=== PATIENT | female | born 1990 | race Caucasian/White ===

== ENCOUNTER 2019-04-07 10:33 | Outpatient (CLI) | payer SELFPAY ==
[2019-04-07 15:41] LABS: TSH (W/Ref FT4) 3.15 uIU/mL (0.36-3.74)
== END 2019-04-07 10:53 ==
DX: F32.9 Major depressive disorder, single episode, unspecified (principal); F41.9 Anxiety disorder, unspecified; G47.00 Insomnia, unspecified; R63.4 Abnormal weight loss
CPT/HCPCS: 36415; 84443

== ENCOUNTER 2019-07-06 16:25 | Outpatient (REF) | payer BC, SELFPAY ==
--- NOTE | 2019-07-06 16:00 | CER_PTH ---
PATIENT: Belen Martinez LOC: [facility] U#:[id number] AGE/SX: 29/F ROOM: RE07/06/[address]: Chino Hilliard MD : 1990 BED: DIS: 07/06/2019 SPEC #: [id number] RECD: 07/06/19 17:59 STATUS: ANA MARIA REBoris #: [id number] JOB: 07/06/19 16:[address]: Chino Hilliard DEPT: Surgical Specimen RECD BY: Karrie Aburto ENTERED: 07/06/19 18:00 SP TYPE: CER ISAIAS DR: Dorina Sutton APRN Tissues: 1 - CERVICAL BIOPSY 2 - CERVICAL BIOPSY 3 - ENDOCERVICAL BX/CURRETTE Procedures: GROSS AND MICRO LEVEL 4 Comments: [id number]
--- NOTE | 2019-07-06 16:00 | PAPFT_PTH ---
PATIENT: Belen Martinez LOC: [facility] U#:[id number] AGE/SX: 29/F ROOM: RE07/06/[address]: Chino Hilliard MD : 1990 BED: DIS: 07/06/2019 SPEC #: [id number] RECD: 07/06/19 18:06 STATUS: ANA MARIA REBoris #: [id number] JOB: 07/06/19 16:[address]: Chino Hilliard DEPT: [facility] Cytology RECD BY: Karrie Aburto ENTERED: 07/06/19 18:06 SP TYPE: PAPFT OTHR DR: Dorina Sutton APRN Tissues: 1 - CX/ENDOCX FOR PAP SMEARS Procedures: PAP THIN PREP/[facility] Screening Comments: [id number]
== END 2019-07-06 16:45 ==
LOC: LBN 16:25
PROVIDERS: Visit Provider Obstetrics & Gynecology
DX: N87.1 Moderate cervical dysplasia (principal); N88.8 Other specified noninflammatory disorders of cervix uteri; R87.613 High grade squamous intraepithelial lesion on cytologic smear of cervix (HGSIL); Z12.4 Encounter for screening for malignant neoplasm of cervix
CPT/HCPCS: 88142; 88305

== ENCOUNTER 2019-07-17 09:42 | Outpatient (CLI) | payer BC, SELFPAY ==
[2019-07-17 12:25] LABS: Abs Immature Grans 0.01 k/cumm (0.0-0.09); Absolute Basophil Count 0.06 k/cumm (0.0-0.2); Absolute Eosinophil Count 0.34 k/cumm (0.0-0.7); Absolute Lymphocyte Count 2.86 k/cumm (1.2-3.4); Absolute Neutrophil Count 3.54 k/cumm (1.2-6.7); Basophils % 0.8; Eosinophils % 4.6; HCT 41.8 % (36.0-46.0); HGB 13.7 g/dL (12.0-15.5); Immature Grans % 0.1 %; Lymphocytes % 38.6; Mean Corp. HGB Concentration 32.8 g/dL (32.0-36.0); Mean Corpuscular Hemoglobin 30.6 pg (27.0-33.0); Mean Corpuscular Volume 93.5 fL (80-95); Mean Platelet Volume 10.4 fL (8.0-11.0); Monocytes % 8.1; Neutrophils % 47.8; Platelet Count 235 x1000/uL (130-400); RBC 4.47 m/cumm (4.00-5.20); RBC Distribution Width 12.7 % (11.7-14.6); White Blood Cell Count 7.41 k/cumm (4.4-10.8)
[2019-07-17 13:14] LABS: ALT 23 U/L (14-59); AST 17 U/L (15-37); Albumin 4.2 g/dL (3.4-5.0); Alkaline Phosphatase 48 U/L (46-116); Anion Gap 11.2 mmol/L (3-11); BUN 10 mg/dL (7-18); Bilirubin, Total 0.6 mg/dL (0.2-1.0); CO2 26.8 mmol/L (21.0-32.0); CREATININE 0.88 mg/dL (0.55-1.02); Calcium 9.1 mg/dL (8.5-10.1); Chloride 106 mmol/L (98-107); Glucose 85 mg/dL (74-106); Sodium 144 mmol/L (136-145); Total Protein 7.1 g/dL (6.4-8.2)
[2019-07-17 13:46] LABS: ESR 6 mm/hr (0-20)
== END 2019-07-17 10:02 ==
DX: R50.9 Fever, unspecified (principal); L63.9 Alopecia areata, unspecified
CPT/HCPCS: 36415; 80053; 85652; 85025

== ENCOUNTER → 2019-07-27 14:05 | Outpatient (REF) | payer BC, SELFPAY ==
--- NOTE | 2019-07-27 13:30 | CER_PTH ---
PATIENT: Belen Martinez LOC: [facility] U#:[id number] AGE/SX: 35/F ROOM: RE07/27/[address]: Chino Hilliard MD : 1990 BED: DIS: SPEC #: [id number] RECD: 07/27/19 17:28 STATUS: ANA MARIA REBoris #: [id number] JOB: 07/27/19 13:[address]: Chino Hilliard DEPT: Surgical Specimen RECD BY: Karrie Aburto ENTERED: 07/27/19 17:29 SP TYPE: CER OTHR DR: Sheridan Gerardo MD Tissues: 1 - CERVICAL LEEP/LOOP 2 - CERVICAL LEEP/LOOP 3 - ENDOCERVICAL BX/CURRETTE Procedures: GROSS AND MICRO LEVEL 4 GROSS AND MICRO LEVEL 5 Comments: [id number]
== END ==
LOC: LBN 14:05
PROVIDERS: PCP Internal Medicine; Visit Provider Obstetrics & Gynecology
DX: Z87.410 Personal history of cervical dysplasia (principal)
CPT/HCPCS: 88305; 88307

== ENCOUNTER 2020-01-27 15:57 | Outpatient (REF) | payer MEDICAID, SELFPAY ==
--- NOTE | 2020-01-27 10:30 | PAPFT_PTH ---
PATIENT: Belen Martinez LOC: [facility] U#:[id number] AGE/SX: 29/F ROOM: RE01/27/[address]: Chino Hilliard MD : 1990 BED: DIS: 01/27/2020 SPEC #: [id number] RECD: 01/27/20 18:15 STATUS: ANA MARIA REQ #: [id number] JOB: 01/27/20 10:[address]: Chino Hilliard DEPT: [facility] Cytology RECD BY: Karrie Aburto ENTERED: 01/27/20 18:16 SP TYPE: PAPFT OT DR: Natty Nicole, PhD RELIABILITY SPECIALIST Tissues: 1 - CX/ENDOCX FOR PAP SMEARS Procedures: PAP THIN PREP/[facility] Screening HPV DNA PROBE Comments: [id number]
== END 2020-01-27 16:17 ==
LOC: LBN 15:57
PROVIDERS: PCP Nurse Practitioner; Visit Provider Obstetrics & Gynecology
DX: Z11.51 Encounter for screening for human papillomavirus (HPV) (principal); Z12.4 Encounter for screening for malignant neoplasm of cervix
CPT/HCPCS: 88142; 87624

== ENCOUNTER 2020-09-13 15:24 | Outpatient (CLI) | payer MEDICAID, SELFPAY ==
--- NOTE | 2020-09-13 15:00 | DI.RAD_ITS ---
EXAM: XR HIP LT COMPLETE AP PELVIS CLINICAL HISTORY: f/u. TECHNIQUE: 2D digital imaging was performed. COMPARISON: No exams were available for comparison FINDINGS: BONES: No acute fracture is present. No bony destructive lesion is seen. JOINTS: No dislocation present. There is prominent coverage of the femoral heads secondary to the nathan tabuli bilaterally. This may represent femoral acetabular impingement. SOFT TISSUE: Normal. IMPRESSION: DATA REPOSITORY: RADIATION DOSE DELIVERED:
== END 2020-09-13 15:25 | disposition home or self-care (01) ==
LOC: DIORS 15:24
PROVIDERS: PCP Nurse Practitioner; Visit Provider Student in an Organized Health Care Education/Training Program
DX: M25.552 Pain in left hip (principal)
CPT/HCPCS: 73502

== ENCOUNTER 2020-11-01 03:02 | Outpatient (CLI) | payer MEDICAID, SELFPAY ==
[2020-11-01 11:39] LABS: Source Nasal/Nares
[2020-11-01 14:30] LABS: COVID-19 PCR Negative (Negative)
== END 2020-11-01 03:03 | disposition home or self-care (01) ==
LOC: LBO 03:02
PROVIDERS: PCP Nurse Practitioner; Visit Provider Student in an Organized Health Care Education/Training Program
DX: Z20.822 Contact with and (suspected) exposure to COVID-19 (principal); Z01.818 Encounter for other preprocedural examination
CPT/HCPCS: 87635

== ENCOUNTER 2020-11-01 03:30 | Outpatient (CLI) | payer MEDICAID, SELFPAY ==
[2020-11-01 12:12] LABS: Calculated LDL 131 mg/dL (<100); Cholesterol 210 mg/dL (<200); HDL Cholesterol 66 mg/dL (40-60); Triglyceride 66 mg/dL (<150)
[2020-11-03 06:26] LABS: Anabasine <2.0 ng/mL (<2.0); Cotinine <5.0 ng/mL (<5.0); Nicotine <5.0 ng/mL (<5.0); Nornicotine <2.0 ng/mL (<2.0)
== END 2020-11-01 03:31 | disposition home or self-care (01) ==
PROVIDERS: PCP Nurse Practitioner; Visit Provider Student in an Organized Health Care Education/Training Program
DX: F17.200 Nicotine dependence, unspecified, uncomplicated (principal); Z13.6 Encounter for screening for cardiovascular disorders; M25.852 Other specified joint disorders, left hip
CPT/HCPCS: 36415; 80061; 80323

== ENCOUNTER 2020-11-04 06:07 | Day surgery (SDC) | payer MEDICAID, SELFPAY ==
[2020-11-04] VITALS (9 sets, daily range): BP systolic 95–131; BP diastolic 51–73; PULSE 64–92; RESP 14–22; TEMP 36.3–36.8; O2SAT 96–100; BMI 20.3
--- NOTE | 2020-11-04 07:00 | W.ANESPRE ---
General Info Date of Service Date Performed: 11/04/20 Height: 5 ft 5 in Weight: 55.4 kg Body Mass Index (BMI): 20.3 Surgical Procedure: Operation Date: 11/04/20 07:50 Proposed Procedures Side Surgeon p HIP Arthroscopy with acetabuloplasty, labral debridement versus repair, and possible femoroplasty Left Sebastián Wood MD Meds Allergies and Home Medications Allergies Allergy/AdvReac Type Severity Reaction Status Date / Time tetrahydrozoline HCl AdvReac Intermediate burning Verified 11/04/20 06:10 [From Visine] Home Medication Medication Instructions Recorded cholecalciferol (vitamin D3) 100 4,000 unit PO DAILY 07/06/19 mcg (4,000 unit) capsule omega-3 fatty acids 1,000 mg 1,000 mg PO DAILY PRN 05/27/20 capsule sertraline 50 mg tablet 50 mg PO DAILY #90 tab 05/27/20 prenat.vits,clayton,kir-lalw-kanvh 1 tab PO DAILY 09/13/20 Current Visit Medications: Current Medications Generic Name Dose Route Start Last Admin Trade Name Freq PRN Reason Stop Dose Admin Ringer's Solution 1,000 mls @ 100 mls/hr 11/04/20 06:00 IV 12/03/20 23:59 INFUSION EREN Cefazolin Sodium/Dextrose 2 gm in 50 mls @ 100 mls/hr 11/04/20 06:00 Ancef Duplex IVPB 12/03/20 23:59 PREOP EREN IV Miscellaneous Supplies 1 each 11/04/20 06:00 Iv Access IV 12/03/20 23:59 DIRECTED EREN Sodium Chloride 0 ml 11/04/20 06:00 Normal Saline Flush 10 Ml Syr IV 12/03/20 23:59 PRN PRN Sodium Chloride 0 ml 11/04/20 06:00 Normal Saline 10 Ml Vial IJ 12/03/20 23:59 DIRECTED PRN Sterile Water 0 ml 11/04/20 06:00 Water,Injection,Sterile 10 Ml Vial IJ 12/03/20 23:59 DIRECTED PRN PFSH Active Problems Active Problems: Problem Status Onset Code Labral tear of left hip joint S73.192A Femoroacetabular impingement of left hip M25.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 HSIL (high grade squamous intraepithelial lesion) on Pap smear of cervix R87.613 RAMONA II (cervical intraepithelial neoplasia II) N87.1 Allergic rhinitis due to allergen 08/06/16 J30.9 Anxiety and depression 09/19/17 F41.9, F32.9 Migraine G43.909 Postnasal drip 05/07/16 R09.82 Smoker 02/13/16 F17.200 Medical History Medical History Fracture of left foot 8th grade Hair loss Personal history of cervical dysplasia (05/23/12) URI (upper respiratory infection) Surgical History Surgical History Arthroscopy, Shoulder (~2007) RIGHT Tobacco Smoking/Tobacco Use Status: Former Tobacco Use Quit Status: has quit before Second hand exposure: Yes Alcohol Alcohol Intake: current Alcohol intake frequency: holidays/special occasions only Alcohol type: beer Substance Use Substance use: Daily Substance use type: marijuana Details: Last use 11/03/20. Vital Signs and Lab Results Vital Signs Most Recent Vital Signs in EMR: Most Recent Vital Signs Temp Pulse Resp BP Pulse Ox 36.6 C 74 17 98/66 L 96 11/04/20 06:16 11/04/20 06:16 11/04/20 06:16 11/04/20 06:16 11/04/20 06:16 Lab Results Blood Type / Crossmatch: No Data to Display Complete Blood Count: White Blood Count 7.41 k/cumm (4.4-10.8) 07/17/19 11:07/17/19 Red Blood Count 4.47 m/cumm (4.00-5.20) 07/17/19 11:07/17/19 Hemoglobin 13.7 g/dL (12.0-15.5) 07/17/19 11:07/17/19 Hematocrit 41.8 % (36.0-46.0) 07/17/19 11:07/17/19 Platelet Count 235 x1000/uL (130-400) 07/17/19 11:07/17/19 Complete Metabolic Panel: Sodium Level 144 mmol/L (136-145) 07/17/19 11:07/17/19 Potassium Level 4.0 mmol/L (3.5-5.1) 07/17/19 11:07/17/19 Chloride Level 106 mmol/L (98-107) 07/17/19 11:30 07/17/19 Carbon Dioxide Level 26.8 mmol/L (21.0-32.0) 07/17/19 11:30 07/17/19 Blood Urea Nitrogen 10 mg/dL (7-18) 07/17/19 11:30 07/17/19 Creatinine 0.88 mg/dL (0.55-1.02) 07/17/19 11:30 07/17/19 Calcium Level 9.1 mg/dL (8.5-10.1) 07/17/19 11:30 07/17/19 Albumin 4.2 g/dL (3.4-5.0) 07/17/19 11:30 07/17/19 Glucose Level 85 mg/dL (74-106) 07/17/19 11:30 07/17/19 Liver Function Panel: Alanine Aminotransferase (ALT/SGPT) 23 U/L (14-59) 07/17/19 11:30 07/17/19 Aspartate Amino Transf (AST/SGOT) 17 U/L (15-37) 07/17/19 11:30 07/17/19 Coagulation Panel: No Data to Display Cardiac Panel: No Data to Display Arterial Blood Gas: No Data to Display Venous Blood Gas: No Data to Display Pancreas Panel: No Data to Display Thyroid Panel: Thyroid Stimulating Hormone (TSH) 3.15 uIU/mL (0.36-3.74) 04/07/19 14:47 04/07/19 Infectious Disease: Coronavirus (COVID-19)(PCR) Negative (Negative) 11/01/20 10:50 11/01/20 Coronavirus 2019 Source Nasal/nares 11/01/20 10:50 11/01/20 Group A Streptococcus Rapid Positive 04/10/17 11:24 04/10/17 Neisseria gonorrhoeae DNA Probe See comments 04/05/15 15:41 04/05/15 Blood Cultures: No Data to Display Toxicology Panel: No Data to Display Panel: Urine HCG, Qualitative Negative 07/27/19 13:07 07/27/19 Anesthesia Assessment and Plan Anesthesia History Personal History: No History of Anesthesia Complications Family History: No Family History of Anesthesia Complications Exercise Tolerance Exercise Tolerance: Metabolic Equivalents>4 Pertinent Negatives Pertinent Negatives: No Symptoms of GERD Cardiac & Pulmonary Exam Cardiac Exam: Normal S1/S2 Heart Sounds Pulmonary Exam: Clear Bilateral Breath Sounds Airway Exam Known Difficult Airway: No Mallampati Class: 1 Mouth Opening: Normal (> 3cm) Thyromental Distance: Greater than 3 cm Neck Range of Motion: Full ROM Neck Circumference: Normal Teeth Condition: Normal Dentition ASA Classification ASA Score: ASA 2 ASA Emergency: No NPO Status NPO Status: NPO Clears >2 hours, Solids >8 hours Status Status: Negative HCG Anesthesia Plan Anesthesia Technique: General Anesthesia Airway Planned: Endotracheal Tube Pain Management: Surgeon and patient request nerve block Monitors Used: Standard Monitors and SedLine
[2020-11-04] MEDS: Lactated Ringers 1,000 ML 100 ML IV (07:16)
[2020-11-04] MEDS: ceFAZolin 2 GM/50 ML BAG IVPB (08:17)
--- NOTE | 2020-11-04 09:30 | W.ANESNERVE ---
Nerve Block Single Injection Procedure Date and Time Date Performed: 11/04/20 Procedure Start: 07:55 Location Where Procedure Performed Procedure Location: Operating Room Procedure Stop: 08:07 Reason Performed: Postoperative Analgesia Requesting Provider: [place] Timeout Performed Timeout Performed: Yes Monitoring Used ECG, Blood Pressure, SpO2 and ETCO2 Sterility Sterility: Hand Hygiene, Surgical Cap, Surgical Mask, Sterile Gloves, Eye Protection and Chlorhexidine Sedation Given During Procedure Sedation Given (Indicate Dose Given): No Sedation given Patient Mental Status Patient Mental Status: Performed under general anesthesia Nerve Block 1st Nerve Block: Laterality: Left Block Type: JASMIN Needle / Catheter Used: 100mm SonoPlex II Local Anesthetic Bolus (Indicate Dose Given): Injected in 3-5ml increments after negative blood aspiration, Bupivacaine 0.5% (15mL) and Exparel (10 mL) Additives (Indicate Dose Given): None Ultrasound: Sterile probe cover and gel used Ultrasound Image Saved?: Yes Nerve Stimulator: Not Used Paresthesia: None Procedure Tolerated: No Complications Procedure Outcome: Successful Performed By: Juanita Barger 2nd Nerve Block: Laterality: Left Block Type: Other (Lateral Femoral Cutaneous) Needle / Catheter Used: 100mm SonoPlex II Local Anesthetic Bolus (Indicate Dose Given): Injected in 3-5ml increments after negative blood aspiration and Bupivacaine 0.5% (5 mL) Additives (Indicate Dose Given): None Ultrasound: Sterile probe cover and gel used Ultrasound Image Saved?: Yes Nerve Stimulator: Not Used Paresthesia: None Procedure Tolerated: No Complications Procedure Outcome: Successful Performed By: Juanita Barger
--- NOTE | 2020-11-04 11:25 | DI.RAD_ITS ---
Exam(s) XR HIP LT IN OR EXAM: XR HIP LT IN OR CLINICAL HISTORY: hip pain, left hip arthroscopy TECHNIQUE: 2D and realtime digital imaging was performed. CONTRAST MATERIAL: Refer to procedure report. FINDINGS: Fluoroscopy was provided for Dr. Wood in the OR. Please refer to the procedure report for complete details. Ka,r=11.23 mGy IMPRESSION: RADIATION DOSE DELIVERED:
--- NOTE | 2020-11-04 11:33 | W.PM.OP ---
Date of service: 11/04/20 Time of Service: 16:18 Operative Note Operative Note DATE OF PROCEDURE: 11/04/20 PRE-OP DIAGNOSIS: Left hip 1. Femoracetabular impingement 2. Labral tear POST-OP DIAGNOSIS: same PROCEDURE: Left hip 1. Arthroscopic acetabuloplasty, CPT 63452 2. Arthroscopic labral repair, CPT# 69307 3. Arthroscopic femoroplasty, CPT# 13902 SURGEON: Sebastián Wood FIRE ALARM DISPATCHER: Radha Rivera ANESTHESIA TYPE: Local By Surgeon, General LMA/ETT and Primary Nerve Block (JASMIN) Refer to Anesthesia Record ESTIMATED BLOOD LOSS: 5 PATHOLOGY: none sent TOURNIQUET TIME: 120 COMPLICATIONS: None Patient was transported to: PACU Patient's condition: stable Implants: 1.8 mm knotless FiberTak x 1 Indications: Please see complete medical record for details. Findings: Limited flexion and internal rotation due to hip impingement. 0 degrees internal rotation at 90 degrees of flexion. Obligatory external rotation in flexion past 115 degrees. Significant lateral and anterior hip over-coverage type pincer lesion. Cartilage thinning and labral fraying from the anterior to superior labrum. Worst about the anterior superior chondral labral junction. Just distal to the anterior superior lesion, femoral neck cartilage thinning and small bony protuberance type cam lesion. Otherwise intact acetabulum and femoral head articular cartilage. Procedure Description: In the operating room, general and regional anesthesia were induced. The patient was positioned supine on the [place] table. All bony prominences were well-padded. Preoperative antibiotics were administered. The correct patient, procedure, and side of the procedure were all verified prior to incision. Initially, appropriate hip joint distraction was confirmed under sterile technique releasing suction seal with the hip in slight abduction by carefully placing an 18-gauge spinal needle into the hip joint and performing an air arthrogram. The needle was removed, provisional traction released, and the hip prepped and draped in the usual sterile fashion. Fluoroscopically, an anterolateral portal was established with hip under about 1 cm distraction. Traction start time as noted. Through the spinal needle, a nitinol wire was inserted and the needle removed. An 11 blade was used to create a portal sized incision about the Nitinol wire. A small 4 mm dilator was passed atraumatically over the nitinol wire through the capsule into the hip joint. The nitinol wire was removed. A 6 mm dilator was then passed over the smaller one into the hip joint and the initial dilator removed. Although the joint was appropriately distracted, given the significant size of the pincer lesion the larger dilator was in contact with the femoral head and acetabular rim on either side. The blunt end of a switching stick was then passed into the hip joint and the last dilator removed. The camera sleeve was then inserted over the switching stick, as carefully as possible maintain the sharp edge away from the femoral head given the narrow window, the switch to removed, and the arthroscope attached to the camera sleeve. An initial dry arthroscopy of the hip joint confirmed appropriate viewing portal location about the equator laterally. Using a combination of fluoroscopic guidance and arthroscopic triangulation a modified mid anterior portal was established in a similar fashion with a spinal needle and sequential dilators. Care was taken to ensure the portal was in an appropriate position and outside the labrum. A banana blade was inserted anteriorly over half pipe. The capsule was released distal to the labrum working towards the anterolateral portal. The camera was then switched to the anterior portal, the anterolateral portal location was confirmed to be appropriate, although still in a very tight space between the acetabulum rim and femoral head and the banana blade brought in the anterolateral portal and the interportal capsulotomy completed. The camera was then switched back to the anterolateral portal. A complete diagnostic arthroscopy of the hip was performed with relevant findings noted above. Attention was then turned to the pincer lesion. In preparation for the acetabuloplasty the capsule was retracted and soft tissue cleared over the acetabular rim working from anterior to superior and completed switching viewing and working portals using a combination of hand and power instruments as well as the radiofrequency ablator. Fluoroscopy was used to confirm appropriate anterior and superior margins of resection. The banana blade was then used to carefully dissect the labrum off the bony acetabular margin while preserving the central cartilage attachment working in a similar fashion from anterior to superior and switching portals to complete the partial labral detachment. The round bur was then brought in the anterior portal and acetabular bone resected carefully contoured away from the labrum with plan resection about 5 mm at the site of the largest part of the lesion anterosuperiorly and contouring into the anterior and superior acetabular rim resections. Fluoroscopy was used to confirm appropriate landmarks and bony resection. The backside of the labrum was abraded to a stable margin. The labrum was probed and found to be unstable at the anterior superior junction while reasonably stable anterior and superiorly given preserved chondral labral junction. The curved anchor guide was brought in the anterior portal tapped into place on the prepared acetabular rim at the anterior superior margin for labral re? fixation while aiming more superiorly to prevent joint penetration. The drill was used the appropriate depth and repeated to clean out bony debris followed by anchor insertion by hand and then completed by claudia. The fiber tack anchor was probably set by pulling all suture ends and then tested with excellent fixation. The rebolledo stitch suture passer was then used to pass the looped end of the fiber loop between the labrum and acetabulum and then retrieve the loop centrally bringing it around the labrum. The repair stitch was then brought around the labrum using the fiber loop as a shuttle and carefully tension appropriately completing the inversion stitch repair. The labral repair was probed found to be stable and also stable more anteriorly and superiorly. As the traction time was nearing 2 hours and the patient's heel was slipping from the boot, the decision was made to omit any additional labral fixation. Traction was gently released under direct visualization with the arthroscope withdrawn from the joint and a blunt ended switching stick anteriorly both directed at the femoral neck. The hip was brought through significant internal, external, and flexion range of motion and fluoroscopic images were obtained helping to localize the CAM lesion. There was a small but obvious area of femoral neck cartilage delamination and bony protuberance distal to the zone of most significant anterior superior pincer lesion and labral injury. Soft tissues were cleared from the femoral neck using the mechanical shaver and radiofrequency probe taking care only to extend distally in the planned working area. The round bur was then used to smooth and contour the femoral neck. Margins again were localized using fluoroscopic guidance and adequate resection confirmed with deep hip flexion and internal and external rotation with no impingement. The patient's heel was resecured in the boot. At this point, traction had been down for 30 minutes and was reestablished briefly to probe the remaining labrum, which was found to be stable, had good suction seal through the previous range of motion impingement testing, and decision was made to omit any additional labral suture anchors. The mechanical shaver was then inserted into the joint and used to remove any remaining bone and cartilage debris. The traction was let back down with the instruments withdrawn from the joint. The interportal portal capsulotomy had well reasonably opposed tissue ends, there was no hip instability, and was not formally closed. The hip was drained of arthroscopic fluid. 20 cc of 0.25% bupivacaine containing epinephrine was infiltrated about the planned portal sites. 3-0 Monocryl was used to close each incision in a buried portal fashion. Mastisol, Steri-Strips, Xeroform, 4 x 4 gauze, and Tegaderms were applied over each incision. The patient awoke from anesthesia without complication and was transferred to the recovery room in a stable condition. Thigh and abdominal compartments remained soft. Distal pulses and neurovascular exam were intact in recovery.
[2020-11-04] MEDS: EPINEPHrine 30 MG/30 ML VIAL (11:57)
[2020-11-04] MEDS: fentaNYL 100 MCG/2 ML VIAL IVP (12:35)
--- NOTE | 2020-11-04 14:19 | W.ANESPOSTOP ---
Postoperative Evaluation Date, Time and Location Date Performed: 11/04/20 Time Performed: 14:22 Patient Location: Day Surgery Unit Vital Signs Most Recent Imported Vital Signs: Most Recent Vital Signs Temp Pulse Resp BP Pulse Ox 36.8 C 69 18 95/69 L 100 11/04/20 13:45 11/04/20 13:45 11/04/20 13:45 11/04/20 13:45 11/04/20 13:45 Pain Score Most Recent Pain Score: Most Recent Pain Score Pain Level 4 11/04/20 13:45 Assessment Mental Status: Awake (Alert & Oriented to Patient Baseline) Airway and Respiratory Function: Patent airway with normal (patient baseline) respiratory exam Cardiovascular Function: Hemodynamically Stable Hydration Status: Adequately Hydrated Nausea & Vomiting: No Nausea or Vomiting Pain: Pt. Denies Any Pain Peripheral Nerve Block: Regional nerve block not resolved at time of post operative discharge (as is appropriate)
--- NOTE | 2020-11-04 14:35 | PDOC.DSDIS_ITS ---
Discharge Plan Disposition Patient Disposition: HOME Condition: Stable Discharge Details Reason For Visit: Left hip arthroscopy Attending Provider: Sebastián Wood Primary Care Provider: Natty Nicole Home Meds and New Rx's Prescriptions: New aspirin 81 mg tablet,delayed release (DR/EC) 81 mg PO DAILY 30 Days Qty: 30 RF: 0 naproxen 250 mg tablet 250 - 500 mg PO BID PRN (Reason: Moderate pain or swelling) Qty: 60 RF: 0 oxycodone 5 mg tablet 5 - 10 mg PO Q4H PRN (Reason: moderate to severe pain) Qty: 22 RF: 0 Continued sertraline 50 mg tablet 50 mg PO DAILY Qty: 90 RF: 4 prenat.vits,clayton,qag-qffl-prnuv Tablet 1 tab PO DAILY RF: 0 cholecalciferol (vitamin D3) 4,000 unit capsule 4,000 unit PO DAILY RF: 0 omega-3 fatty acids [Fish Oil Concentrate] 1,000 mg capsule 1,000 mg PO DAILY PRNRF: 0 Discharge Instructions Additional Instructions: Surgery: Left hip arthroscopy with acetabuloplasty, labral repair, and femoroplasty Activity: Protected weight bearing (less than 50%) with crutches for 4 weeks. Avoid deep hip flexion or hip extension for 6 weeks. No cutting, pivoting, or sports for 3-4 months. A physical therapy prescription will be sent electronically to start in about 1 month. Prescriptions: Aspirin 81 mg take 1 daily to prevent a blood clot for 30 days Naproxen 250 mg take 1-2 every 12 hours with a meal as needed for moderate pain Oxycodone 5 mg take 1-2 every 4-6 hours as needed for severe pain You may use ohqk-ipt-wijamyj Tylenol (acetaminophen) as needed for mild pain. These pain medications may be taken all at once or in different combinations as needed. Also, recommend Colace (docusate) as a stool softener as surgery and pain medicine cause constipation. Dressings: Leave dressing in place for 2-3 days. May then remove and leave open to air or cover incisions with Band-Aids. May shower after 5 days. Follow-up: 10-[address] Wood Let us know right away if you develop any redness, drainage, fevers, chest pain, or trouble breathing. Do not drink alcohol or drive for at least 24 hours after anesthesia. Please call the office during business hours with any questions or concerns. Yo u can also text or call Dr. Wood at [phone]. Stand Alone Forms: Anes.Nerve Block Instructions, Crutch Training Instructions Referrals: Sebastián Wood MD [ [facility] STAFF PHYSICIAN] - Discharge Orders Discharge Orders: Discharge Order (Routine); Ordered 11/04/20 Ordered By: Sebastián Wood DS: Diagnosis Discharge Diagnosis (1) Labral tear of left hip joint: Status: Acute (2) Femoroacetabular impingement of left hip: Status: Acute
== END 2020-11-04 14:55 | disposition home or self-care (01) ==
PROVIDERS: PCP Nurse Practitioner; Visit Provider Student in an Organized Health Care Education/Training Program
PROC: (CPT 29860; principal; 2020-11-04 07:30)
DX: M25.852 Other specified joint disorders, left hip (principal); M24.152 Other articular cartilage disorders, left hip
CPT/HCPCS: 29916; 29915; 29914; 76942; 73501; J0690; J1100; J2001; J2250; J2405; J3010

== ENCOUNTER 2021-06-07 11:06 | Outpatient (REF) | payer MEDICAID, SELFPAY ==
--- NOTE | 2021-06-07 10:30 | PAPFT_PTH ---
PATIENT: Belen Martinez LOC: [facility] U#:[id number] AGE/SX: 31/F ROOM: RE06/07/[address]: Yasmeen Holliday NP : 1990 BED: DIS: 06/07/2021 SPEC #: [id number] RECD: 06/07/21 12:55 STATUS: ANA MARIA REBoris #: [id number] JOB: 06/07/21 10:[address]: Yasmeen Holliday NP DEPT: [facility] Cytology RECD BY: Karrie Aburto ENTERED: 06/07/21 12:55 SP TYPE: PAPFT OTHR DR: Natty Nicole, PhD EDITOR INDEX Tissues: 1 - CX/ENDOCX FOR PAP SMEARS Procedures: PAP THIN PREP/[facility] Screening HPV DNA PROBE Comments: [id number]
== END 2021-06-07 11:07 | disposition home or self-care (01) ==
LOC: LBN 11:06
PROVIDERS: PCP Nurse Practitioner; Visit Provider Nurse Practitioner Women's Health
DX: Z12.4 Encounter for screening for malignant neoplasm of cervix (principal); Z11.51 Encounter for screening for human papillomavirus (HPV)
CPT/HCPCS: 88142; 87624

== ENCOUNTER 2021-06-20 13:34 | Outpatient (CLI) | payer MEDICAID, SELFPAY ==
--- NOTE | 2021-06-20 13:15 | DI.RAD_ITS ---
Exam(s) XR HIP RT COMPLETE AP PELVIS EXAM: XR HIP RT COMPLETE AP PELVIS CLINICAL HISTORY: Right hip pain. TECHNIQUE: 2D digital imaging was performed of the right hip. Three images were obtained. AP pelvis and lateral right hip views were obtained. COMPARISON: No exams were available for comparison FINDINGS: BONES: No acute fracture is present. No bony destructive lesion is seen. There is prominence of the a cetabulum with covering of the femoral head bilaterally, right greater than left. Findings are suspi cious for femoral acetabular impingement. JOINTS: No dislocation present. The sacroiliac joints and symphysis pubis are unremarkable. SOFT TISSUE: Normal. IMPRESSION: Findings suggestive of femoral acetabular impingement, right greater than left. DATA REPOSITORY: RADIATION DOSE DELIVERED:
== END 2021-06-20 13:35 | disposition home or self-care (01) ==
LOC: DIORS 13:34
PROVIDERS: PCP Nurse Practitioner; Referring Provider Nurse Practitioner; Visit Provider Student in an Organized Health Care Education/Training Program
DX: M25.551 Pain in right hip (principal); M25.851 Other specified joint disorders, right hip
CPT/HCPCS: 73502

== ENCOUNTER 2021-08-29 03:18 | Outpatient (CLI) | payer MEDICAID, SELFPAY ==
[2021-08-29 15:49] LABS: Source Nasal/Nares
[2021-08-29 17:27] LABS: COVID-19 PCR Negative (Negative)
== END 2021-08-29 03:19 | disposition home or self-care (01) ==
LOC: LBO 03:18
PROVIDERS: PCP Nurse Practitioner; Visit Provider Student in an Organized Health Care Education/Training Program
DX: Z20.822 Contact with and (suspected) exposure to COVID-19 (principal); Z01.818 Encounter for other preprocedural examination
CPT/HCPCS: 87635

== ENCOUNTER 2021-08-31 06:07 | Day surgery (SDC) | payer MEDICAID, SELFPAY ==
[2021-08-31] VITALS (7 sets, daily range): BP systolic 92–123; BP diastolic 45–79; PULSE 65–79; RESP 15–21; TEMP 36.5–37.1; O2SAT 97–100; BMI 21.8
[2021-08-31] MEDS: Lactated Ringers 1,000 ML 100 ML IV (06:45)
--- NOTE | 2021-08-31 06:57 | W.ANESPRE ---
General Info Date of Service Date Performed: 08/31/21 Height: 5 ft 3 in Weight: 55.9 kg Body Mass Index (BMI): 21.8 Surgical Procedure: Operation Date: 08/31/21 07:50 Proposed Procedure Side Surgeon p Hip Arthroscopy w/Acetabuloplasty, Labral Repair and Femoroplasty Right Sebastián Aparicio MD Meds Allergies and Home Medications Allergies Allergy/AdvReac Type Severity Reaction Status Date / Time tetrahydrozoline HCl AdvReac Intermediate burning Verified 08/31/21 06:28 [From Visine] Home Medication Medication Instructions Recorded cholecalciferol (vitamin D3) 100 4,000 unit PO DAILY 07/06/19 mcg (4,000 unit) capsule omega-3 fatty acids 1,000 mg 1,000 mg PO DAILY PRN 05/27/20 capsule (Fish Oil Concentrate) prenat.vits,clayton,haq-qkyq-anawe 1 tab PO DAILY 09/13/20 sertraline 50 mg tablet 50 mg PO DAILY #90 tab 06/29/21 Current Visit Medications: Current Medications Generic Name Dose Route Start Last Admin Trade Name Freq PRN Reason Stop Dose Admin Ringer's Solution 1,000 mls @ 100 mls/hr 08/31/21 06:00 08/31/21 06:45 IV 09/29/21 23:59 100 mls/hr INFUSION EREN Administration Cefazolin Sodium/Dextrose 2 gm in 50 mls @ 100 mls/hr 08/31/21 06:00 Ancef Duplex IVPB 08/31/21 16:00 PREOP EREN IV Miscellaneous Supplies 1 each 08/31/21 06:00 Iv Access IV 09/29/21 23:59 DIRECTED EREN Sodium Chloride 0 ml 08/31/21 06:00 Normal Saline Flush 10 Ml Syr IV 09/29/21 23:59 PRN PRN Sodium Chloride 0 ml 08/31/21 06:00 Normal Saline 10 Ml Vial IJ 09/29/21 23:59 DIRECTED PRN Sterile Water 0 ml 08/31/21 06:00 Water,Injection,Sterile 10 Ml Vial IJ 09/29/21 23:59 DIRECTED PRN PFSH Active Problems Active Problems: Problem Status Onset Code Smoker 02/13/16 F17.200 Postnasal drip 05/07/16 R09.82 Anxiety and depression 09/19/17 F41.9, F32.9 Labral tear of right hip joint S73.191A Femoroacetabular impingement of right hip M25.851 Medical History Medical History Allergic rhinitis due to allergen (08/06/16) Fracture of left foot 8th grade Hair loss taking vitamin D, declined steroid Personal history of cervical dysplasia (05/23/12) Surgical History Surgical History Arthroscopy, Shoulder (~2007) RIGHT H/O LEEP S/P hip arthroscopy LEFT HIP DONE BY DR. APARICIO Tobacco Smoking/Tobacco Use Status: Former Tobacco Use Second hand exposure: Yes Alcohol Alcohol Intake: current Alcohol intake frequency: a few times a month Alcohol type: beer Substance Use Substance use: Daily Substance use type: marijuana Details: last used 08/30/21 Prental History History 0 Para Hx # Term Pregnancies Multiple births Hx # Pregnancies Ectopic pregnancies AB induced Hx Number of Living Children AB spontaneous Vital Signs and Lab Results Vital Signs Most Recent Vital Signs in EMR: Most Recent Vital Signs Temp Pulse Resp BP Pulse Ox 37.1 C 73 17 108/79 97 08/31/21 06:20 08/31/21 06:20 08/31/21 06:20 08/31/21 06:20 08/31/21 06:20 Lab Results Blood Type / Crossmatch: No Data to Display Complete Blood Count: No Data to Display Complete Metabolic Panel: No Data to Display Liver Function Panel: No Data to Display Coagulation Panel: No Data to Display Cardiac Panel: No Data to Display Arterial Blood Gas: No Data to Display Venous Blood Gas: No Data to Display Pancreas Panel: No Data to Display Thyroid Panel: No Data to Display Infectious Disease: Coronavirus (COVID-19)(PCR) Negative (Negative) 08/29/21 09:59 08/29/21 Coronavirus 2019 Source Nasal/Nares 08/29/21 09:59 08/29/21 Blood Cultures: No Data to Display Toxicology Panel: No Data to Display Panel: No Data to Display Anesthesia Assessment and Plan Anesthesia History Personal History: No History of Anesthesia Complications Family History: No Family History of Anesthesia Complications Exercise Tolerance Exercise Tolerance: Metabolic Equivalents>4 Pertinent Negatives Pertinent Negatives: No Symptoms of GERD, No Major Cardiovascular Symptoms or Complaints, No Major Pulmonary Symptoms or Complaints and No History of CVA/TIA Cardiac & Pulmonary Exam Cardiac Exam: Normal S1/S2 Heart Sounds Pulmonary Exam: Clear Bilateral Breath Sounds Implantable Cardiac Device Does patient have a Pacemaker or an ICD?: No Airway Exam Known Difficult Airway: No Mallampati Class: 1 Mouth Opening: Normal (> 3cm) Thyromental Distance: Greater than 3 cm Neck Range of Motion: Full ROM Neck Circumference: Normal Teeth Condition: Normal Dentition ASA Classification ASA Score: ASA 1 Emergency Case?: No NPO Status NPO Status: NPO Clears >2 hours, Solids >8 hours Status Status: Negative HCG Anesthesia Plan Resuscitation Status: Full Code Anesthesia Technique: General Anesthesia Airway Planned: Endotracheal Tube Monitors Used: Standard Monitors
--- NOTE | 2021-08-31 07:30 | W.PM.OP ---
Date of service: 08/31/21 Time of Service: 08:00 Operative Note Operative Note DATE OF PROCEDURE: 08/31/21 PRE-OP DIAGNOSIS: Right hip 1. Labral tear 2. Femoracetabular impingement POST-OP DIAGNOSIS: same PROCEDURE: Right hip 1. Arthroscopic labral repair, CPT# 97354 2. Arthroscopic femoroplasty, CPT# 53384 3. Arthroscopic acetabuloplasty, CPT 03392 SURGEON: Sebastián Wood [employer] OPERATOR: Chantal Levin ANESTHESIA TYPE: Local By Surgeon, General LMA/ETT and Primary Nerve Block (JASMIN) Refer to Anesthesia Record ESTIMATED BLOOD LOSS: 5 COMPLICATIONS: None Patient was transported to: PACU Patient's condition: stable Implants: 1.8 mm knotless FiberTak x 1 Indications: Please see complete medical record for details. Findings: Limited flexion and internal rotation due to hip impingement.? 5 degrees internal rotation at 90 degrees of flexion.? Obligatory external rotation in flexion past 125 degrees. Small anterior superior chondral labral junction tear. Small femoral head neck offset prominence. Preserved articular cartilage. Less severe lesion and much less labral and cartilage wear than contralateral side. Procedure Description: In the operating room, general and regional anesthesia were induced.? The patient was positioned supine on the [place] table.? All bony prominences were well-padded.? Preoperative antibiotics were administered.? The correct patient, procedure, and side of the procedure were all verified prior to incision. Initially, appropriate hip joint distraction was confirmed under sterile technique releasing suction seal with the hip in slight abduction by carefully placing an 18-gauge spinal needle into the hip joint and performing an air arthrogram.? The needle was removed, provisional traction released, and the hip prepped and draped in the usual sterile fashion. Fluoroscopically, an anterolateral portal was established with hip under about 1 cm distraction.? Traction start time as noted.? Through the spinal needle, a nitinol wire was inserted and the needle removed.? An 11 blade was used to create a portal sized incision about the Nitinol wire.? A small 4 mm dilator was passed atraumatically over the nitinol wire through the capsule into the hip joint.? The nitinol wire was removed.? A 6 mm dilator was then passed over the smaller one into the hip joint and the initial dilator removed.? The blunt end of a switching stick was then passed into the hip joint and the last dilator removed.? The camera sleeve was then inserted over the switching stick, the switch to removed, and the arthroscope attached to the camera sleeve.? An initial dry arthroscopy of the hip joint confirmed appropriate viewing portal location about the equator laterally.? Using a combination of fluoroscopic guidance and arthroscopic triangulation a modified mid anterior portal was established in a similar fashion with a spinal needle and sequential dilators.? Care was taken to ensure the portal was in an appropriate position and outside the labrum. ? A banana blade was inserted anteriorly over half pipe.? The capsule was released distal to the labrum working towards the anterolateral portal.? The camera was then switched to the anterior portal, the anterolateral portal location was confirmed to be appropriate. The banana blade brought in the anterolateral portal and the interportal capsulotomy completed.? The camera was then switched back to the anterolateral portal. A complete diagnostic arthroscopy of the hip was performed with relevant findings noted above. Attention was then turned to the pincer lesion.? In preparation for the acetabuloplasty the capsule was retracted and soft tissue cleared over the acetabular rim working from anterior to superior and completed switching viewing and working portals using a combination of hand and power instruments as well as the radiofrequency ablator.? Fluoroscopy was used to confirm appropriate anterior and anterior superior margin of the resection. It was difficult to fully reach the most superior margin of the resection, which was far lateral from the labral zone of injury. The banana blade was then used to carefully dissect the labrum off the bony acetabular margin while preserving the central cartilage attachment working in a similar fashion from anterior to superior and switching portals to complete the partial labral detachment.? The round bur was then brought in the anterior portal and acetabular bone resected carefully contoured away from the labrum with plan resection about 3-4 mm at the site of the largest part of the lesion anterosuperiorly and contouring into the anterior and to a lesser extent superior acetabular rim resections.? Fluoroscopy was used to confirm appropriate landmarks and bony resection.? The backside of the labrum was abraded to a stable margin.? The moderately diminutive labrum was probed and found to be unstable at the anterior superior junction while reasonably stable anterior and superiorly given preserved chondral labral junction.? The curved anchor guide was brought in the anterior portal tapped into place on the prepared acetabular rim at the anterior superior margin for labral re? fixation while aiming more superiorly to prevent joint penetration.? The drill was used the appropriate depth and repeated to clean out bony debris followed by anchor insertion by hand and then completed by mallfaizan.? The fiber tack anchor was probably set by pulling all suture ends and then tested with excellent fixation.? The rebolledo stitch suture passer was then used to pass the looped end of the fiber loop between the labrum and acetabulum and then retrieve the loop centrally bringing it around the labrum.? The repair stitch was shuttled through the anchor, but there was knotting of the sutures and the mechanism which could not be undone so the sutures and anchors were removed and an additional fiber tack was placed slightly more superiorly. The drill in this position encountered quite firm bone and even after passing the drill in out in and out again the fiber tack anchor could not deploy in this position. Instead, the original location was selected the drill carefully positioned with the insert over the initial drill hole and the wire passed largely by hand into the same path while the drill was maintained in position and anchor was placed into this position through the drill guide and appropriately deployed with good fixation strength. The looped end of the shuttle suture was then passed using a rebolledo stitch through the chondral labral junction into the joint and then withdrawn out the other side of the labrum. The repair stitch was then brought around the labrum using the fiber loop as a shuttle and carefully tension appropriately completing the inversion stitch repair.? The labral repair was inspected and found to be stable and also reasonably stable more anteriorly and superiorly.? Additional fixation was omitted given the somewhat diminutive labrum and reasonable labral stability present. Traction was gently released under direct visualization at around 90 minutes with the arthroscope withdrawn from the joint and a blunt ended switching stick anteriorly both directed at the femoral neck.? The hip was brought through significant internal, external, and flexion range of motion and fluoroscopic images were obtained helping to localize the CAM lesion.? There was a small area of bony protuberance distal to the zone of most significant anterior superior labral injury.? Soft tissues were cleared from the femoral neck using the mechanical shaver and radiofrequency probe taking care only to extend distally in the planned working area.? The round bur was then used to smooth and contour the femoral neck.? Margins again were localized using fluoroscopic guidance and adequate resection confirmed with deep hip flexion and internal and external rotation with no impingement. The interportal portal capsulotomy had well reasonably opposed tissue ends, there was no hip instability, and was not formally closed.? The hip was drained of arthroscopic fluid.? 3-0 Monocryl was used to close each incision in a buried portal fashion.? Mastisol, Steri-Strips, Xeroform, 4 x 4 gauze, and Tegaderms were applied over each incision. The patient awoke from anesthesia without complication and was transferred to the recovery room in a stable condition.? Thigh and abdominal compartments remained soft.? Distal pulses and neurovascular exam were intact in recovery.
--- NOTE | 2021-08-31 07:48 | W.ANESNERVE ---
Nerve Block Single Injection Procedure Date and Time Date Performed: 08/31/21 Procedure Start: 07:39 Location Where Procedure Performed Procedure Location: Operating Room Procedure Stop: 07:44 Reason Performed: Postoperative Analgesia Requesting Provider: Sebastián Wood Timeout Performed Timeout Performed: Yes Monitoring Used ECG, Blood Pressure and SpO2 Sterility Sterility: Hand Hygiene, Surgical Cap, Surgical Mask, Sterile Gloves and Chlorhexidine Sedation Given During Procedure Sedation Given (Indicate Dose Given): No Sedation given Patient Mental Status Patient Mental Status: Performed under general anesthesia Nerve Block 1st Nerve Block: Laterality: Right Block Type: JASMIN Needle / Catheter Used: 100mm SonoPlex II Local Anesthetic Bolus (Indicate Dose Given): Injected in 3-5ml increments after negative blood aspiration, Bupivacaine 0.5% Dose:: 10 ml and Exparel Dose:: 10 ml Additives (Indicate Dose Given): Normal Saline (hydrodissection) Ultrasound: Sterile probe cover and gel used Ultrasound Image Saved?: Yes Nerve Stimulator: Not Used Paresthesia: None Procedure Tolerated: No Complications and Patient tolerated well Procedure Outcome: Successful Performed By: Killian Clifford
[2021-08-31] MEDS: ceFAZolin 2 GM/50 ML BAG IVPB (07:50)
[2021-08-31] MEDS: EPINEPHrine 30 MG/30 ML VIAL (09:28)
--- NOTE | 2021-08-31 10:10 | DI.RAD_ITS ---
Exam(s) XR HIP RT IN OR EXAM: XR HIP RT IN OR CLINICAL HISTORY: Femoroacetabular impingement of right hip:. TECHNIQUE: 2D digital imaging was performed. COMPARISON: FINDINGS: Fluoroscopy was provided during right hip orthopedic procedure. See procedure report for details IMPRESSION: Total cumulative dose = 6.4680 mGy DATA REPOSITORY: RADIATION DOSE DELIVERED:
--- NOTE | 2021-08-31 10:19 | PDOC.DSDIS_ITS ---
Discharge Plan Disposition Patient Disposition: HOME Condition: Stable Discharge Details Reason For Visit: Right hip surgery Attending Provider: Sebastián Wood Primary Care Provider: Natty Nicole Home Meds and New Rx's Prescriptions: New aspirin 81 mg tablet,delayed release (DR/EC) 81 mg PO DAILY 14 Days Qty: 14 0RF naproxen 250 mg tablet 250 - 500 mg PO BID PRNQty: 40 0RF Rx Instructions: take with a meal oxycodone 5 mg tablet 5 - 10 mg PO Q4H MDD 30 mg PRN (Reason: moderate to severe pain) Qty: 18 0RF Continued prenat.vits,clayton,nzq-hbla-ipeyq Tablet 1 tab PO DAILY 0RF cholecalciferol (vitamin D3) 4,000 unit capsule 4,000 unit PO DAILY 0RF omega-3 fatty acids [Fish Oil Concentrate] 1,000 mg capsule 1,000 mg PO DAILY PRN0RF sertraline 50 mg tablet 50 mg PO DAILY Qty: 90 4RF Discharge Instructions Additional Instructions: Surgery: Right hip arthroscopy with acetabuloplasty, labral repair, and femoroplasty Activity: Protected weight bearing (less than 50%) with crutches for 4 weeks.? Avoid deep hip flexion or hip extension for 6 weeks.? No cutting, pivoting, or sports for 3-4 months.? A physical therapy prescription will be sent electronically to start in about 1 month. Prescriptions: Aspirin 81 mg take 1 daily to prevent a blood clot for 14 days Naproxen 250 mg take 1-2 every 12 hours with a meal as needed for moderate pain Oxycodone 5 mg take 1-2 every 4-6 hours as needed for severe pain You may use krjx-mgm-yausdua Tylenol (acetaminophen) as needed for mild pain. These pain medications may be taken all at once or in different combinations as needed. Also, recommend Colace (docusate) as a stool softener as surgery and pain medicine cause constipation. Dressings: Leave dressing in place for 2-3 days.? May then remove and leave open to air or cover incisions with Band-Aids.? May shower after 5 days. Follow-up: 10-[address] Wood Referrals: Sebastián Wood MD [ [facility] STAFF PHYSICIAN] - Discharge Orders Discharge Orders: Discharge Order (Routine); Ordered 08/31/21 Ordered By: Sebastián Wood
[2021-08-31] MEDS: fentaNYL 100 MCG/2 ML VIAL IVP (10:32)
[2021-08-31] MEDS: Naproxen 500 MG TAB PO (11:36)
--- NOTE | 2021-08-31 12:07 | W.ANESPOSTOP ---
Postoperative Evaluation Date, Time and Location Date Performed: 08/31/21 Time Performed: 12:07 Patient Location: Day Surgery Unit Vital Signs Most Recent Imported Vital Signs: Most Recent Vital Signs Temp Pulse Resp BP Pulse Ox 37.0 C 79 18 103/69 97 08/31/21 11:37 08/31/21 11:37 08/31/21 11:37 08/31/21 11:37 08/31/21 11:37 Pain Score Most Recent Pain Score: Most Recent Pain Score Pain Level 3 08/31/21 11:37 Assessment Mental Status: Awake (Alert & Oriented to Patient Baseline) Airway and Respiratory Function: Patent airway with normal (patient baseline) respiratory exam Cardiovascular Function: Hemodynamically Stable Hydration Status: Adequately Hydrated Nausea & Vomiting: No Nausea or Vomiting Pain: Pt. Denies Any Pain Peripheral Nerve Block: Regional nerve block not resolved at time of post operative discharge
== END 2021-08-31 12:15 | disposition home or self-care (01) ==
PROVIDERS: PCP Nurse Practitioner; Visit Provider Student in an Organized Health Care Education/Training Program
PROC: (CPT 29860; principal; 2021-08-31 07:30)
DX: M25.852 Other specified joint disorders, left hip (principal); M24.152 Other articular cartilage disorders, left hip; F17.210 Nicotine dependence, cigarettes, uncomplicated; F41.8 Other specified anxiety disorders
CPT/HCPCS: 29914; 29915; 76942; 81025; 73501; J0131; J0690; J1100; J1885; J2001; J2250; J2405; J2704; J3010

== ENCOUNTER 2022-07-31 03:17 | Outpatient (CLI) | payer MEDICAID, SELFPAY ==
[2022-07-31 11:12] LABS: HCT 41.6 % (36.0-46.0); HGB 13.7 g/dL (11.2-15.7); MCH 31.1 pg (27.0-33.0); MCHC 32.9 % (32.0-36.0); MCV 95 fL (80-95); MPV 10.2 fL (8.0-11.0); Platelet Count 290 10^3/uL (130-400); RDW 12.3 % (11.7-14.6); RDW-SD 43.2 fL; WBC 7.47 10^3/uL (4.4-10.8)
[2022-07-31 11:17] LABS: ALT 22 U/L (14-59); AST 25 U/L (15-37); Albumin 4.5 g/dL (3.4-5.0); Alkaline Phosphatase 66 U/L (46-116); Anion Gap 5.6 mmol/L (3-11); BUN 10 mg/dL (7-18); Bilirubin, Total 0.5 mg/dL (0.2-1.0); CO2 30.4 mmol/L (21.0-32.0); CREATININE 1.2 mg/dL (0.55-1.02); Calcium 9.5 mg/dL (8.5-10.1); Chloride 102 mmol/L (98-107); Estimated GFR 61.68 (mL/min/1.73m2); Glucose 90 mg/dL (74-106); Potassium 3.8 mmol/L (3.5-5.1); Sodium 138 mmol/L (136-145); Total Protein 7.7 g/dL (6.4-8.2)
[2022-07-31 18:44] LABS: FSH 5.1 mIU/mL (See Note); Prolactin 6.1 ng/mL (See Note)
[2022-08-01 16:17] LABS: Antimullerian Hormone 4.6 ng/mL (0.58-8.1)
== END 2022-07-31 03:18 | disposition home or self-care (01) ==
LOC: LBO 03:17
PROVIDERS: Nurse Practitioner Women's Health; PCP Nurse Practitioner Family; Visit Provider Nurse Practitioner Family
DX: R53.83 Other fatigue (principal); F41.8 Other specified anxiety disorders; F32.89 Other specified depressive episodes; F17.210 Nicotine dependence, cigarettes, uncomplicated; N97.8 Female infertility of other origin
CPT/HCPCS: 36415; 80053; 85027; 83001; 83520; 84146; 84443

== ENCOUNTER 2022-07-31 10:57 | Outpatient (REF) | payer MEDICAID, SELFPAY ==
--- NOTE | 2022-07-31 10:20 | PAPFT_PTH ---
PATIENT: Belen Martinez LOC: TO U#:[id number] AGE/SX: 32/F ROOM: RE07/31/[address]: Yasmeen Holliday NP : 1990 BED: DIS: 07/31/2022 SPEC #: [id number] RECD: 07/31/22 12:55 STATUS: ANA MARIA REBoris #: [id number] JOB: 07/31/22 10:[address]: Yasmeen Holliday NP DEPT: [facility] Cytology RECD BY: Karrie Aburto ENTERED: 07/31/22 12:55 SP TYPE: PAPFT OTHR DR: Radha Ott NP Tissues: 1 - CX/ENDOCX FOR PAP SMEARS Procedures: PAP THIN PREP/[facility] Screening HPV DNA PROBE Comments: [id number]
== END 2022-07-31 10:58 | disposition home or self-care (01) ==
LOC: LBN 10:57
PROVIDERS: PCP Nurse Practitioner Family; Visit Provider Nurse Practitioner Women's Health
DX: Z12.4 Encounter for screening for malignant neoplasm of cervix (principal); Z11.51 Encounter for screening for human papillomavirus (HPV); Z87.410 Personal history of cervical dysplasia
CPT/HCPCS: 88142; 87624

== ENCOUNTER 2022-12-19 02:51 | Outpatient (CLI) | payer MEDICAID, SELFPAY ==
--- NOTE | 2022-12-19 07:45 | DI.RAD_ITS ---
Exam(s) XR WRIST LT COMPLETE EXAM: XR WRIST LT COMPLETE CLINICAL HISTORY: LT WRIST PAIN, M25.532. TECHNIQUE: 2D digital imaging was performed. COMPARISON: No exams were available for comparison FINDINGS: 3 views No evidence of acute fracture or dislocation nor significant ulnar variance. Scaphoid and scapholuna te distance normal. Bone density normal. No osseous lesions. No erosions. No radiopaque foreign b laurie. IMPRESSION: No significant osseous findings in the wrist. DATA REPOSITORY: RADIATION DOSE DELIVERED:
== END 2022-12-19 03:11 ==
LOC: DI 02:51
PROVIDERS: PCP Nurse Practitioner Family; Visit Provider Nurse Practitioner Family
DX: M25.532 Pain in left wrist (principal)
CPT/HCPCS: 73110

== ENCOUNTER 2024-08-07 01:04 | Outpatient (CLI) | payer MEDICAID, SELFPAY ==
[2024-08-07 14:41] LABS: Anion Gap 7.2 mmol/L (3-11); BUN 13 mg/dL (7-18); CO2 30.8 mmol/L (21.0-32.0); CREATININE 1.1 mg/dL (0.55-1.02); Calcium 9.1 mg/dL (8.5-10.1); Chloride 103 mmol/L (98-107); Estimated GFR 67.62 (mL/min/1.73m2); Glucose 92 mg/dL (74-106); Potassium 3.5 mmol/L (3.5-5.1); Sodium 141 mmol/L (136-145)
== END 2024-08-07 01:05 | disposition home or self-care (01) ==
PROVIDERS: PCP Nurse Practitioner Family; Visit Provider Nurse Practitioner Family
DX: Z00.00 Encounter for general adult medical examination without abnormal findings (principal); F41.9 Anxiety disorder, unspecified; F32.9 Major depressive disorder, single episode, unspecified; R79.89 Other specified abnormal findings of blood chemistry
CPT/HCPCS: 36415; 80048

== ENCOUNTER 2024-08-25 14:56 | Outpatient (CLI) | payer MEDICAID, SELFPAY ==
--- NOTE | 2024-08-25 12:00 | DI.RAD_ITS ---
Exam(s) XR CHEST 2V PA LATERAL EXAM: XR CHEST 2V PA LATERAL CLINICAL HISTORY: cough, r/o pneumonia. R05.9 TECHNIQUE: 2D digital imaging was performed of the chest. Two images were obtained. PA and lateral views were obtained. COMPARISON: CR CHEST 2 VIEWS PA,LAT from 09/10/2014 FINDINGS: MEDIASTINUM: Normal. HEART: Normal. PULMONARY VASCULATURE: Normal. LUNGS: Clear. PLEURAL SPACE: No pleural effusion or pneumothorax. BONE:Within normal limits for the patient's age. OTHER FINDINGS:Nipple shadow was present on the left. IMPRESSION: No acute pulmonary findings. DATA REPOSITORY: RADIATION DOSE DELIVERED:
== END 2024-08-25 15:16 ==
LOC: DI 14:57
PROVIDERS: PCP Nurse Practitioner Family; Visit Provider Physician Assistant
DX: R05.9 Cough, unspecified (principal)
CPT/HCPCS: 71046

== ENCOUNTER 2024-09-05 20:21 | Emergency (ER) | payer MEDICAID, SELFPAY ==
[2024-09-05 20:25] VITALS: BP 131/89; PULSE 88; RESP 16; O2SAT 99
[2024-09-05 20:32] VITALS: BP 131/89; PULSE 88; RESP 16; O2SAT 99
--- NOTE | 2024-09-05 20:34 | ED.GENADUL_ITS ---
Discharge Plan Disposition Patient Disposition: Home Condition: Stable Discharge Details Clinical Impression: Contact with dyes Primary Care Provider: Radha Ott ED Provider: Holland Palma Home Meds and New Rx's Prescriptions: Continued amoxicillin-pot clavulanate 875-125 mg tablet 1 tab PO Q12H Qty: 14 0RF Rx Instructions: Take 1 tablet twice a day for 7 days cholecalciferol (vitamin D3) 4,000 unit capsule 4,000 unit PO DAILY benzonatate 100 mg capsule 100 mg PO TID PRN (Reason: cough) Qty: 14 0RF albuterol sulfate 90 mcg/actuation HFA aerosol inhaler 2 puff inhalation Q6H PRN (Reason: shortness of breath or wheezing) Qty: 8.5 0RF duloxetine 40 mg capsule,delayed release(DR/EC) 40 mg PO DAILY 90 Days Qty: 90 3RF Discharge Instructions Instructions: Chemical Exposure to the Skin ED Additional Instructions: You were seen in the emergency department for the bluish tent to your skin likely from a new shirt, you brisk capillary refill in all your fingers I do not suspect any emergent pathology, please use gentle soaps and wash normally, if this does not improve or gets much worse please return for reevaluation. Referrals: Radha Ott NP [Primary Care Provider] - Discharge Data Discharge Date/Time-TO BE ENTERED AT DEPARTURE: 09/05/24 20:49 HPI General Date/Time Provider Initiated Documentation: 09/05/24 20:31 . HPI Narrative: 34 year-old female presents to ED today by POV/ambulating with a chief complaint of blue skin, on torso, hands, not face/legs with onset around 1330- patient did wear a new black underarmor shirt. Quality described as not painful, had some tingling and cold hands, but not currently, no radiation to fever, lesion, itchiness, chest pain, cough, shortness of breath, respiratory distress. Severity is described as mild. Palliating factors include nothing specific atte mpted. Provoking factors include nothing specific. Patient not anticoagulated. Related Data Home Medications ?Medication ?Instructions ?Recorded ?Confirmed cholecalciferol (vitamin D3) 100 4,000 unit PO DAILY 07/06/19 09/02/24 mcg (4,000 unit) capsule duloxetine 40 mg capsule,delayed 40 mg PO DAILY 90 days #90 tab-caps 08/14/24 09/02/24 release albuterol sulfate 90 mcg/actuation 2 puff inhalation Q6H PRN 08/25/24 09/02/24 aerosol inhaler shortness of breath or wheezing #8.5 grams benzonatate 100 mg capsule 100 mg PO TID PRN cough #14 caps 08/25/24 09/02/24 amoxicillin 875 mg-potassium 1 tab PO Q12H #14 tabs 09/02/24 09/02/24 clavulanate 125 mg tablet Previous Rx's ?Medication ?Instructions ?Recorded duloxetine 40 mg capsule,delayed 40 mg PO DAILY 90 days #90 tab-caps 08/14/24 release albuterol sulfate 90 mcg/actuation 2 puff inhalation Q6H PRN 08/25/24 aerosol inhaler shortness of breath or wheezing #8.5 grams benzonatate 100 mg capsule 100 mg PO TID PRN cough #14 caps 08/25/24 amoxicillin 875 mg-potassium 1 tab PO Q12H #14 tabs 09/02/24 clavulanate 125 mg tablet Allergies Allergy/AdvReac Type Severity Reaction Status Date / Time tetrahydrozoline HCl (From AdvReac Intermediate burning Verified 09/02/24 07:03 Visine) General Stated Complaint: GenMedical MAYURI: 4 Review of Systems All systems reviewed & are unremarkable except as noted in HPI and below Exam Narrative Exam Narrative: GENERAL APPEARANCE: Well-nourished, non-toxic, awake and alert, atraumatic, no acute distress. SKIN: Warm, pink, dry, bluish hue to torso and hands, spares the brassiere line, no lesions, no swelling, no pruritus or excoriation HEAD: Normocephalic, atraumatic, normal hair distribution for gender/age. EYES: Normal conjunctiva, no exudates on lids/lashes. ENT: Nares patent, no circumoral cyanosis, no facial swelling NECK: Supple, trachea midline, painless cervical ROM. LUNGS/CHEST: Non-labored respirations, normal A/P diameter, symmetrical expansion, no chest wall deformity HEART (CV/PV): No peripheral edema, no JVD. ABDOMEN: Soft, non-distended, no guarding. MSK: Normal ROM, no swelling/deformity to bilateral UEs or LEs, moving all extremities without weakness, no cyanosis, spine midline without tenderness, normal curvature. NEURO: Mental Status AAOx4 - alert to person, place, time, events No facial droop, no forehead involvement. Motor: No focal weakness - strength 5/5 in bilateral UEs and LEs, proximal and distal, symmetric. Sensory: sensation intact to light touch globally. Gait normal: patient ambulated without ataxia into ED room. PSYCH: euthymic, cooperative, pleasant, appropriate speech Course Vital Signs Vital signs: Vital Signs Pulse 88 09/05/24 20:25 Respiratory Rate 16 09/05/24 20:25 Blood Pressure 131/89 09/05/24 20:25 Pulse Oximetry 99 09/05/24 20:25 Pulse 88 09/05/24 20:25 Respiratory Rate 16 09/05/24 20:25 Blood Pressure 131/89 09/05/24 20:25 Blood Pressure Position Sitting 09/05/24 20:25 Pulse Oximetry 99 09/05/24 20:25 Oxygen Delivery Method Room Air 09/05/24 20:25 Oxygen Flow Rate 0 09/05/24 20:25 Pain Level 0 09/05/24 20:25 Medical Decision Making This dictation utilizes [id number] dictation software and may contain unedited grammatical errors. 34 year-old female presents to ED today by POV/ambulating with a chief complaint of blue skin, on torso, hands, not face/legs with onset around 1330- patient did wear a new black underarmor shirt. Quality described as not painful, had some tingling and cold hands, but not currently, no radiation to fever, lesion, itchiness, chest pain, cough, shortness of breath, respiratory distress. Severity is described as mild. Palliating factors include nothing specific attempted. Provoking factors include nothing specific. Patients' medical history: Noncontributory. Family and social history: Noncontributory. Pertinent exam findings / vital signs include mild bluish tent to her torso and hands, it does spare her brassiere line, suspect exposure to dyes, no evidence of infection or cyanosis. Differential / pathologies of concern include exposure to dyes. Diagnostic studies of: -None. Interventions of: -None. ED Course/Assessment/Plan: 34-year-old female presents with her skin turning blue, she had burned a black shirt, it appears to be contact with dye-it spares the brassiere line, has nonblanchable, I suspect the patient needs to just wash this off over a few days. She has no evidence of cyanosis or respiratory distress or allergic reaction. Findings not consistent with allergic reaction, cyanosis. Disposition of contact with dyes. Patient verbalized understanding of the plan and return to ED criteria and engaged in shared decision making. Medical Records Medical records reviewed: Yes I reviewed the patient's medical records. Quality:[facility] Health Related Social Needs: No Data to Display [facility] All Active Problems (Updated 09/05/24 @ 20:41 by PATTI Olson) Contact with dyes (Acute) Elevated serum creatinine (Acute) De Quervain's tenosynovitis, left (Acute) Left wrist pain (Acute) Infertility counseling (Acute) Desire for (Acute) Fatigue (Acute) Smoker (Acute 02/13/16) Postnasal drip (Acute 05/07/16) Anxiety and depression (Acute 09/19/17) Labral tear of right hip joint (Acute) Femoroacetabular impingement of right hip (Acute) Medical History Hair loss taking vitamin D, declined steroid Allergic rhinitis due to allergen (08/06/16) Fracture of left foot 8th grade Personal history of cervical dysplasia (05/23/12) Surgical History S/P hip arthroscopy LEFT HIP: 11/04/[address] APARICIO RIGHT HIP: 08/31/[address] APARICIO [facility] Arthroscopy, Shoulder (~2007) RIGHT Family History Mother Alcohol abuse Depression Father No problems noted. Brother Depression Brother Depression Maternal Grandfather Alcohol abuse Paternal Grandfather Hyperlipidemia Maternal Grandmother No problems noted. Paternal Grandmother Hyperlipidemia Family History Cancer Social History Smoking/Tobacco Use Status: Current every day Tobacco Type: cigarettes and e- cigarettes Tobacco: How many years used: 15 Quit status: considering quitting Second Hand Exposure: Yes Smoking risk assessment performed?: Yes Alcohol Intake: current Alcohol Intake frequency: holidays/special occasions only Alcohol type: beer Drug use: Daily Substance use type: marijuana Adopted: No Caregiver/Support person: No Foster care: No Household members: significant other and other Details: 2 Clients Housing: house Communication Needs: None Education Level: college Do you need help understanding health information?: Rarely 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[employer] Pets and animals: Yes Pets and animals: cat(s), dog(s) and farm animals Sexually active: Yes Do you think of yourself as: straight/heterosexual Current gender identity: female What is your relationship status?: living with partner How often do you talk on the phone with friends or family?: three or more times per week How often do you get together with friends or relatives?: three or more times per week How often do you attend presybeterian or taoism services?: decline to answer Do you belong to any clubs or organized social groups?: no Panel score (0-1 are the most socially isolated patients): 2 What type of physical activity do you participate in: other Details: GYM Duration: 45-60 minutes/day Frequency: 3-4 times per week Jyoti/Alevism: None Special jyoti needs: No Seatbelt use: always Helmet use: Yes Helmet use: always Drive intox or ride w/intox car driver: No Do you feel safe at home: Yes Do you feel safe in your relationship?: Yes Victim of physical abuse: No Victim of emotional abuse: No Victim of sexual abuse: No History History 0 Para Hx # Term Pregnancies Multiple births Hx # Pregnancies Ectopic pregnancies AB induced Hx Number of Living Children AB spontaneous
== END 2024-09-05 20:49 | disposition home or self-care (01) ==
PROVIDERS: Emergency Provider Physician Assistant; PCP Nurse Practitioner Family
DX: L98.9 Disorder of the skin and subcutaneous tissue, unspecified (principal); Z77.098 Contact with and (suspected) exposure to other hazardous, chiefly nonmedicinal, chemicals
CPT/HCPCS: 99282

== ENCOUNTER 2025-01-13 09:46 | Outpatient (CLI) | payer MEDICAID, SELFPAY ==
--- NOTE | 2025-01-13 09:15 | DI.RAD_ITS ---
Exam(s) XR HIP PELVIS ADULT BL EXAM: XR HIP PELVIS ADULT BL CLINICAL HISTORY: BILATERAL HIP PAIN. TECHNIQUE: 2D digital imaging was performed. Three views. COMPARISON: CR XR HIP RT COMPLETE AP PELVIS from 06/20/2021 XA XR HIP RT IN OR from 08/31/2021 FINDINGS: BONES: No acute fracture is present. No bony destructive lesion is seen. JOINTS: No dislocation present. There is bilateral superior acetabular spurring which is greater on the right. There is also spur spurring at the margins of both femoral heads. There is slight superior hip joint space narrowing. SI joints and pubic symphysis are unremarkable. SOFT TISSUE: Normal. IMPRESSION: Bilateral periarticular spurring, right greater than left. DATA REPOSITORY: RADIATION DOSE DELIVERED:
== END 2025-01-13 09:47 | disposition home or self-care (01) ==
LOC: DIORS 09:46
PROVIDERS: PCP Nurse Practitioner Family; Visit Provider Student in an Organized Health Care Education/Training Program
DX: M25.852 Other specified joint disorders, left hip (principal); S73.192A Other sprain of left hip, initial encounter
CPT/HCPCS: 73521

== ENCOUNTER 2025-03-25 04:12 | Outpatient (CLI) | payer MEDICAID, SELFPAY ==
--- NOTE | 2025-03-25 07:06 | DI.RAD_ITS ---
Exam(s) RF JOINT INJ. FLUORO GUID RAD EXAM: RF JOINT INJ. FLUORO GUID RAD CLINICAL HISTORY: Left HIP PAIN,labral tear rt hip joint, fluoro guided injection,femoroacetabul. The Patient has had persistent left hip pain. Noninvasive measures have been tried. To serve as both diagnostic and therapeutic, an injection under fluoroscopy was recommended. The risks of the procedure were discussed with their Orthopedic provider and the patient elected to proceed. TECHNIQUE: 2D and realtime digital imaging was performed. CONTRAST MATERIAL: Water soluble contrast was utilized. COMPARISON: No exams were available for comparison FINDINGS: The Patient was greeted in the fluoroscopy room. The correct side was identified and the consent was reviewed with the patient and was signed. The patient was properly positioned on the fluoroscopy table. The left hipwas then prepped and draped. The left hip injection starting point was identified by the bony landmarks and fluoroscopy. The skin and soft tissue in the tract of the injection was anesthetized with 0.25% Bupivacaine. A spinal needle was then inserted into the left hip joint at the level of the junction of the head and neck of the left femur under fluoroscopic guidance. A small amount of Omnipaque solution was injected to confirm intraarticular placement. Once confirmed, the left hip was injected with 5cc of a solution containing 0.25% Bupivacaine and 40 mg of Depo-Medrol. A bandaid was placed on the injection site. The patient tolerated the procedure well and left the department in good condition. IMPRESSION: Successful left hip injection. RADIATION DOSE DELIVERED: Ka,r=0.9 mGy
--- NOTE | 2025-03-25 07:08 | DI.RAD_ITS ---
Exam(s) RF JOINT INJ. FLUORO GUID RAD EXAM: RF JOINT INJ. FLUORO GUID RAD CLINICAL HISTORY: Right HIP PAIN,fluoro guided injection,labral tear lt hip joint,femoroacetabula. The Patient has had persistent right hip pain. Noninvasive measures have been tried. To serve as both diagnostic and therapeutic, an injection under fluoroscopy was recommended. The risks of the procedure were discussed with their Orthopedic provider and the patient elected to proceed. TECHNIQUE: 2D and realtime digital imaging was performed. CONTRAST MATERIAL: Water soluble contrast was utilized. COMPARISON: No exams were available for comparison FINDINGS: The Patient was greeted in the fluoroscopy room. The correct side was identified and the consent was reviewed with the patient and was signed. The patient was properly positioned on the fluoroscopy table. The right hipwas then prepped and draped. The right hip injection starting point was identified by the bony landmarks and fluoroscopy. The skin and soft tissue in the tract of the injection was anesthetized with 0.25% Bupivacaine. A spinal needle was then inserted into the right hip joint at the level of the junction of the head and neck of the right femur under fluoroscopic guidance. A small amount of Omnipaque solution was injected to confirm intraarticular placement. Once confirmed, the right hip was injected with 5cc of a solution containing 0.25% Bupivacaine and 40 mg of Depo-Medrol. A bandaid was placed on the injection site. The patient tolerated the procedure well and left the department in good condition. IMPRESSION: Successful right hip injection. RADIATION DOSE DELIVERED: Ka,r=3.0 mGy
[2025-03-25] MEDS: Bupivacaine 0.25% Pres-Free 10 ML VIAL IJ ×2 (15:37→15:42)
[2025-03-25] MEDS: methylPREDNISolone ACETATE 40 MG/ML VIAL IM ×2 (15:38→15:45)
[2025-03-25] MEDS: Omnipaque 300 MG/ML 10 ML BTL IJ ×2 (15:39→15:44)
== END 2025-03-25 04:32 ==
LOC: DI 04:12
PROVIDERS: PCP Nurse Practitioner Family; Visit Provider Student in an Organized Health Care Education/Training Program
DX: S73.191A Other sprain of right hip, initial encounter (principal); M25.851 Other specified joint disorders, right hip; S73.192A Other sprain of left hip, initial encounter; M25.852 Other specified joint disorders, left hip; X58.XXXA Exposure to other specified factors, initial encounter
CPT/HCPCS: 20610; 77002; J0665; J1010